=== PATIENT | male | born 1995 | race Caucasian/White ===

== ENCOUNTER 2022-01-26 01:03 | Emergency (ER) | payer SELFPAY ==
[2022-01-26 01:03] VITALS: BP 131/96; PULSE 88; RESP 19; TEMP 36.7; O2SAT 97; BMI 32.1
[2022-01-26 01:08] VITALS: BMI 32.1
--- NOTE | 2022-01-26 01:10 | CT_ITS ---
PROCEDURE INFORMATION: Exam: CT Cervical Spine Without Contrast Exam date and time: 01/26/2022 1:21 AM Age: 26 years old Clinical indication: Injury or trauma; Fall; Blunt trauma; Additional info: Fall, mid back pain TECHNIQUE: Imaging protocol: Computed tomography of the cervical spine without contrast. Radiation optimization: All CT scans at this facility use at least one of these dose optimization techniques: automated exposure control; mA and/or kV adjustment per patient size (includes targeted exams where dose is matched to clinical indication); or iterative reconstruction. COMPARISON: CR XR CHEST AP 01/26/2022 1:12 AM FINDINGS: Bones/joints: Straightening of the curvature of the cervical spine is likely positional. Discs/Spinal canal/Neural foramina: No significant disc protrusion. No severe spinal canal stenosis. No significant neural foraminal narrowing. Lungs: Lung apices are normal. Soft tissues: Unremarkable. IMPRESSION: No acute fracture or malalignment of the cervical spine.
--- NOTE | 2022-01-26 01:10 | CT_ITS ---
PROCEDURE INFORMATION: Exam: CT Head Without Contrast Exam date and time: 01/26/2022 1:21 AM Age: 26 years old Clinical indication: Injury or trauma; Fall; Blunt trauma (contusions or hematomas); Additional info: Fall, mid back pain TECHNIQUE: Imaging protocol: Computed tomography of the head without contrast. Radiation optimization: All CT scans at this facility use at least one of these dose optimization techniques: automated exposure control; mA and/or kV adjustment per patient size (includes targeted exams where dose is matched to clinical indication); or iterative reconstruction. COMPARISON: No relevant prior studies available. FINDINGS: Brain: Normal. No hemorrhage. Unremarkable white matter. No mass effect. Cerebral ventricles: No ventriculomegaly. Paranasal sinuses: Visualized sinuses are unremarkable. No fluid levels. Mastoid air cells: Visualized mastoid air cells are well aerated. Bones/joints: Unremarkable. No acute fracture. Soft tissues: Unremarkable. IMPRESSION: No acute intracranial abnormality.
--- NOTE | 2022-01-26 01:10 | CT_ITS ---
PROCEDURE INFORMATION: Exam: CT Thoracic Spine Without Contrast Exam date and time: 01/26/2022 1:24 AM Age: 26 years old Clinical indication: Injury or trauma; Fall; Blunt trauma (contusions or hematomas); Injury date: 01/26/22; Additional info: Fall, mid back pain TECHNIQUE: Imaging protocol: Computed tomography of the thoracic spine without contrast. Radiation optimization: All CT scans at this facility use at least one of these dose optimization techniques: automated exposure control; mA and/or kV adjustment per patient size (includes targeted exams where dose is matched to clinical indication); or iterative reconstruction. COMPARISON: CT CERVICAL SPINE WO CON 01/26/2022 1:21 AM FINDINGS: Bones/joints: No acute fracture. Normal alignment. Discs/Spinal canal/Neural foramina: No significant disc protrusion. No severe spinal canal stenosis. No significant neural foraminal narrowing. Soft tissues: Unremarkable. Lungs: There is an 11 mm right lower lobe pulmonary nodule. IMPRESSION: 1. No acute fracture or malalignment of the thoracic spine. 2. There is an 11 mm right lower lobe pulmonary nodule. A three-month follow-up chest CT is recommended.
--- NOTE | 2022-01-26 01:11 | XR_ITS ---
PROCEDURE INFORMATION: Exam: XR Chest Exam date and time: 01/26/2022 1:12 AM Age: 26 years old Clinical indication: Injury or trauma; Fall; Blunt trauma (contusions or hematomas) TECHNIQUE: Imaging protocol: Radiologic exam of the chest. Views: 1 view. COMPARISON: No relevant prior studies available. FINDINGS: Lungs: Unremarkable. No consolidation. Pleural spaces: Unremarkable. No pleural effusion. No pneumothorax. Heart/Mediastinum: Unremarkable. No cardiomegaly. Bones/joints: Unremarkable. IMPRESSION: No acute intrathoracic organ injury.
--- NOTE | 2022-01-26 01:11 | XR_ITS ---
PROCEDURE INFORMATION: Exam: XR Pelvis Exam date and time: 01/26/2022 1:14 AM Age: 26 years old Clinical indication: Injury or trauma; Fall; Blunt trauma (contusions or hematomas); Does not apply; Pelvic region TECHNIQUE: Imaging protocol: Radiologic exam of the pelvis. Views: 1 or 2 view. COMPARISON: No relevant prior studies available. FINDINGS: Bones/joints: No acute fracture or dislocation. Soft tissues: Unremarkable. IMPRESSION: No acute fracture or dislocation.
--- NOTE | 2022-01-26 01:18 | PC.NURSE ---
Pt gone to RAD
--- NOTE | 2022-01-26 01:31 | PC.NURSE ---
Pt back from RAD
[2022-01-26 02:00] VITALS: BP 138/87; PULSE 96; O2SAT 93
--- NOTE | 2022-01-26 02:25 | HMH.EDFALL ---
ED Disposition Clinical Impression: Acute thoracic myofascial strain Qualifiers: Encounter type: initial encounter Qualified Code(s): S29.019A - Strain of muscle and tendon of unspecified wall of thorax, initial encounter Cervical strain, acute Qualifiers: Encounter type: initial encounter Qualified Code(s): S16.1XXA - Strain of muscle, fascia and tendon at neck level, initial encounter Fall Qualifiers: Encounter type: initial encounter Qualified Code(s): W19.XXXA - Unspecified fall, initial encounter Disposition: Home, Self-Care Condition on Discharge: Good Instructions: DI for Thoracic Back Pain Additional Instructions: ice and advil and tyenol Prescriptions: Meloxicam 15 mg PO DAILY #10 tab Transmission Status: Pending to [id number] Referrals: Provider,Referral, [Primary Care Provider] - - Critical Care Critical Care Time: No Attestation: On 01/26/22, the high probability of a clinically significant, sudden or life threatening deterioration of the following system(s) required my full and direct attention, intervention and personal management. The time I documented below is in addition to time spent performing reported procedures but includes the following listed in this critical care notation. Medical Decision Making - Medical Records Medical records reviewed: Yes: I reviewed the patient's medical records. - [facility] Inquiry Pt receiving controlled substance: No Vital Signs: 01/26/22 01:03 Temperature 98.1 F Temperature Source Oral Pulse Rate [Right] 88 Respiratory Rate 19 Blood Pressure [Right Arm] 131/96 H Blood Pressure Mean [Right Arm] 107 Blood Pressure Source [Right Arm] Automatic Cuff 02 Sat by Pulse Oximetry 97 Oxygen Delivery Method Room Air - Radiology Data #1 Image(s): Chest, Pelvis Image Reviewed: Yes I have reviewed radiologist's interpretation Preliminary Findings: No Fracture Seen - CT Data CT Scan: Head, C-Spine, T-Spine Time Received: 02:[address] Reviewed: Yes: I have viewed the radiologist's interpretation Preliminary Findings: No Fracture Seen Medical Decision Narrative: pt with stable exam and neg xrays at this time - workman comp forms completed Fall HPI - General Chief Complaint: Fall Stated Complaint: Back Pain Time Seen by Provider: 01/26/22 01:10 Mode of Arrival: EMS Source of Information: Patient, EMS, Medical Record Limitations: No Limitations Description of Symptoms (Recalled from ER Triage Doc. by RN): Pt c/o fall while at work @ [employer]. Reports his feet slipped on wet floor and he does not have anti-slip shoes yet. States that he struck the middle of his back on the floor and knocked the breath out of me . He now c/o mid back pain that is tender on palpation. No radiating pain down legs or arms. No weakness in legs or arms. Denies any SOA or difficulty breathing at this time. Denies any loss of bowel o bladder. Denies any parathesia to arms or legs. Denies any significant PMH. - History of Present Illness HPI Narrative: slipped and fell at work without loc and has back pain - MD complaint: fall Onset (ago): minute(s) Fall from: standing Fall witnessed: no Place fall occurred: work Loss of consciousness: none Symptoms prior to fall: none Context: tripped/slipped Location of injury: neck, back Severity: moderate Associated symptoms (after fall): denies - Related Data Previous Rx's Medication Instructions Recorded Meloxicam 15 mg PO DAILY #10 tab 01/26/22 Allergies Allergy/AdvReac Type Severity Reaction Status Date / Time Sulfa (Sulfonamide Allergy Mild Rash Verified 01/26/22 01:10 Antibiotics) [facility] History - Hepatitis A Screen Attestation statement:: This patient has been screened for Hepatitis A risk factors. I have reviewed the patient's past medical history: Yes ROS Obtained: Yes All systems reviewed & no additional complaints - Constitutional Constitutional: Denies fever(s) - Ey
[2022-01-26 02:31] VITALS: BP 122/83; PULSE 90; O2SAT 96
--- NOTE | 2022-01-26 03:14 | PC.NURSE ---
Pt does not have his photo ID on him, Lab unable to collect d/t this reason. Pt educated to return with a photo ID to complete drug test as soon as he can. [facility]
[2022-01-26 03:31] VITALS: BP 134/82; PULSE 82; RESP 20; TEMP 36.9; O2SAT 98
== END 2022-01-26 03:32 | disposition home or self-care (01) ==
PROVIDERS: Emergency Provider Emergency Medicine
DX: S29.019A Strain of muscle and tendon of unspecified wall of thorax, initial encounter (principal); S16.1XXA Strain of muscle, fascia and tendon at neck level, initial encounter; W01.0XXA Fall on same level from slipping, tripping and stumbling without subsequent striking against object, initial encounter; Y99.0 Civilian activity done for income or pay; Z88.2 Allergy status to sulfonamides
CPT/HCPCS: 70450; 71045; 72125; 72128; 72170; 99285

== ENCOUNTER 2022-04-11 15:59 | Emergency (ER) | payer SELFPAY ==
[2022-04-11 16:35] VITALS: BP 133/101; PULSE 89; RESP 20; TEMP 37.1; O2SAT 99; BMI 32.1
--- NOTE | 2022-04-11 16:49 | EXP.UTC ---
Discharge Plan Disposition Patient Disposition: Home, Self-Care Condition: Good Prescriptions Prescriptions: New iksqmvmdnmpzoxm-tynritqvf-QY [Bromfed DM] 2-30-10 mg/5 mL Syrup 10 ml PO Q4H PRN (Reason: Cough) Qty: 240 0RF No Action meloxicam 15 MG tablet 15 mg PO DAILY Qty: 10 0RF Referrals Follow up/Referrals: Provider,Referral, MD [Primary Care Provider] - See instructions Activity Restrictions/Add. Instructions Additional Instructions/Restrictions: *Monitor Temp, Over the counter Motrin or Tylenol as directed/as needed Tylenol every 4 hours and Motrin every 6 hours (as long as your family doctor has told you that you can take it) for fever or pain. and straight to ER if unable to lower temp less than 101.0 after medication given *Warm salt water gargles may help to soothe the throat *Throat Lozenges? *Warm fluids like tea with honey may help to soothe the throat? *Sleep elevated *Humidifier/Vaporizer *Bromfed may cause drowsiness. Know how it effects you (your child) before driving, caring for small child, or sending your child to school. Not other antihistamines/allergy medications while taking bromfed Your throat swab was sent for culture. Those results are typically sent to your primary care. Be sure to follow up in 2-3 days with your family doctor/primary care physician if no improvement so they can review those result and treat if necessary. If you don?t have a primary care doctor, I recommend you get one but in the mean time, you will have to return to a walk in clinic Follow up IMMEDIATELY for new or worsening symptoms or no Noticeable improvement over the next 48-72 hours. 911 for difficulty breathing or swallowing Clinical Impressions Clinical Impression: Sore throat (viral) Stand Alone Forms Stand Alone Forms: Work/School Release Instructions Patient Instructions: Sore Throat, DI for Nasal Congestion Discharge ED Provider: Kimber Duarte [facility] HPI General Stated complaint: sore throat runny nose Mode of Arrival: Ambulatory Source of Information: Patient Limitations: No Limitations Time Seen by Provider: 04/11/22 16:50 Description of Symptoms (Recalled from Triage Doc. 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 and thinks it made him sick States that today he wasnt able to work so he came in to get checked for strep throat Related Data Previous Rx's Medication Instructions Recorded meloxicam 15 mg tablet 15 mg PO DAILY #10 tabs 01/26/22 vizaewtlejykgml-udketxganfnlisv-FX 10 ml PO Q4H PRN Cough #240 mL 04/11/22 2 mg-30 mg-10 mg/5 mL oral syrup (Bromfed DM) Allergies Allergy/AdvReac Type Severity Reaction Status Date / Time Sulfa (Sulfonamide Allergy Mild Rash Verified 01/26/22 01:10 Antibiotics) Worker's Comp Is this a Worker's Comp case?: No PFSH PFSH Medical History (Updated 04/11/22 @ 16:53 by Kimber Duarte APRN) No significant past medical history Social History (Updated 04/11/22 @ 16:48 by Misty Pinzon RN) Smoking Status: Unknown if ever smoked alcohol intake: never current occupational status: employed Travel in the last 8 weeks: None ROS Obtained: Yes All systems reviewed & no additional complaints except as documented and Yes Systems reviewed as appropriate & no additional complaints except as documented ENT Ears, Nose, Mouth, and Throat: Reports system reviewed and no additional complaints, except as documented, Reports as per HPI, Reports nasal congestion, Reports nasal
[2022-04-11 16:52] LABS: UTC Strep Screen (Rapid) Negative (Negative)
[2022-04-11 16:54] VITALS: BP 133/101; PULSE 89; RESP 20; TEMP 37.1; O2SAT 99
== END 2022-04-11 17:01 | disposition home or self-care (01) ==
PROVIDERS: Emergency Provider Nurse Practitioner
DX: J02.9 Acute pharyngitis, unspecified (principal); R09.81 Nasal congestion
CPT/HCPCS: 87880; 99212; G0463

== ENCOUNTER 2022-10-28 21:27 | Emergency (ER) | payer MEDICAID, SELFPAY ==
[2022-10-28 21:28] VITALS: BP 129/73; PULSE 97; RESP 17; TEMP 37.1; O2SAT 97; BMI 37.5
--- NOTE | 2022-10-29 01:09 | PC.NURSE ---
ER speaking with pt
--- NOTE | 2022-10-29 01:24 | HMH.EDWNDL ---
Discharge Plan Disposition Patient Disposition: Home, Self-Care Chief Complaint: Wound/Laceration Prescriptions Prescriptions: No Action meloxicam 15 MG tablet 15 mg PO DAILY Qty: 10 0RF axrlbrpgyeabfrj-njebfkyfh-DG [Bromfed DM] 2-30-10 mg/5 mL Syrup 10 ml PO Q4H PRN (Reason: Cough) Qty: 240 0RF Referrals Follow up/Referrals: Provider,Referral, [Primary Care Provider] - See instructions Clinical Impressions Clinical Impression: Anal lesion Instructions Patient Instructions: MEL James for Laceration Repair Discharge ED Provider: Cecil (ED)Deni Wound/Laceration HPI General Chief Complaint: Wound/Laceration Stated Complaint: possible hemorrhoid with blood Time Seen by Provider: 10/29/22 01:24 Mode of Arrival: Ambulatory Source of Information: Patient and Medical Record Limitations: No Limitations Description of Symptoms (Recalled from ER Triage Doc. by RN): 27 M presents with a possible hemorroid for the past few years. This bleeds intermittently after a BM. He denies bleeding at this time; however, is still concerned. History of Present Illness HPI narrative: pt with hx of rectal lesion and presents for follow up - has been present for weeks - no gross bleeding or pain - does reports rectal intercourse Onset (ago): week(s) Place: home Related Data Previous Rx's Medication Instructions Recorded meloxicam 15 mg tablet 15 mg PO DAILY #10 tabs 01/26/22 bnwjnlqfabhkvos-mberohnyejllyfh-WC 10 ml PO Q4H PRN Cough #240 mL 04/11/22 2 mg-30 mg-10 mg/5 mL oral syrup (Bromfed DM) Allergies Allergy/AdvReac Type Severity Reaction Status Date / Time Sulfa (Sulfonamide Allergy Mild Rash Verified 01/26/22 01:10 Antibiotics) [facility] Disclaimer: The information contained in this section may have been updated after the patient was seen, as this information can be updated by other users. Medical History (Updated 10/29/22 @ 01:30 by Deni Jacob (ED)MD) No significant past medical history Social History (Updated 04/11/22 @ 16:53 by Kimber Duarte APRN) Smoking Status: Never smoker alcohol intake: never current occupational status: employed Travel in the last 8 weeks: None ROS Obtained: Yes All systems reviewed & no additional complaints except as documented Physical Exam General General appearance: alert Head Head exam: normocephalic Eye Eye exam: Present PERRL ENT ENT exam: Present mucous membranes moist Neck Neck exam: Present trachea midline Respiratory Respiratory exam: Absent respiratory distress Cardiovascular Cardiovascular exam: Present regular rate Rectal Exam Rectal exam: Present other (skin tag vs wart - no gross infection ); Absent hemorrhoids Extremities Exam Extremities exam: Present full ROM Neurological Exam Neurological exam: Present alert, oriented X3 and CN II-XII intact Psychiatric Psychiatric exam: Present normal affect Skin Skin exam: Absent rash Medical Decision Making Medical Records Medical records reviewed: Yes I reviewed the patient's medical records. [facility] Inquiry Pt receiving controlled substance: No Vital Signs: 10/28/22 21:28 Temperature 98.7 F Temperature Source Oral Pulse Rate [Left] 97 H Respiratory Rate 17 Blood Pressure [Right Arm] 129/73 Blood Pressure Mean [Right Arm] 91 Blood Pressure Source [Right Arm] Automatic Cuff Blood Pressure Position [Right Arm] Sitting 02 Sat by Pulse Oximetry 97 Oxygen Delivery Method Room Air Lab Data Lab results reviewed: Yes I reviewed the patient's lab results. Medical Decision Narrative: rectal lesion which will need surg eval Critical Care Time Critical Care Time Critical Care Time: No Attestation: On 10/28/22, the high probability of a clinically significant, sudden or life threatening deterioration of the following system(s) required my full and direct attention, intervention and personal management. The time I documented below is in additio
[2022-10-29 01:30] VITALS: BP 155/94; PULSE 77; RESP 14; TEMP 36.8; O2SAT 97
== END 2022-10-29 01:33 | disposition home or self-care (01) ==
PROVIDERS: Emergency Provider Emergency Medicine
DX: K62.9 Disease of anus and rectum, unspecified (principal)
CPT/HCPCS: 99282; 99283

== ENCOUNTER 2022-11-23 07:54 | Day surgery (SDC) | payer MEDICAID, SELFPAY ==
[2022-11-21 12:52] VITALS: BMI 32.1
[2022-11-23] VITALS (10 sets, daily range): BP systolic 118–158; BP diastolic 70–98; PULSE 75–101; RESP 16–18; TEMP 36.2–43; O2SAT 91–98
[2022-11-23 08:31] LABS: Basophils # 0.1 K/mm3 (0-0.2); Basophils % 0.9 % (0.1-2.0); Eosinophils # 0.2 K/mm3 (0.0-0.4); Eosinophils % 2.3 % (0.1-12.0); Hematocrit 49.4 % (42.0-52.0); Hemoglobin 16.7 g/dL (14.1-18.0); Lymphocytes # 4.9 K/mm3 (0.7-4.5); Mean Corpuscular HGB Conc 33.8 g/dL (31.8-35.4); Mean Corpuscular Hemoglobin 28.4 pg (27.0-31.2); Mean Corpuscular Volume 84.1 fl (80-94); Mean Platelet Volume 7.2 fl (7.4-10.4); Monocytes # 0.8 K/mm3 (0.1-1.0); Neutrophils # 4.4 K/mm3 (1.8-7.8); Neutrophils % 41.9 % (37.0-80.0); Platelet Count 335 K/mm3 (142-424); Red Blood Count 5.88 M/mm3 (4.60-6.20); Red Cell Distribution Width 13.4 % (11.5-17.5); White Blood Count 10.4 K/mm3 (4.8-10.8)
--- NOTE | 2022-11-23 08:31 | SUR.PREOP ---
General discharge teaching with patient and mother, reviewing severe pain or bleeding to return to ER. Follow up will be made before discharge, Pharmacy verified, mother to be with patient after discharge. Reviewed post-op recovery protocols, pt verbalized understanding.
[2022-11-23 08:35] LABS: Chloride 104 mmol/L (98-107); Potassium 3.8 mmoL/L (3.5-5.1); Sodium 139 mmol/L (136-145)
[2022-11-23 08:38] LABS: Anion Gap 12.8 mEq/L (5-15); Blood Urea Nitrogen 14 mg/dl (9-20); Calcium 9.3 mg/dl (8.4-10.2); Carbon Dioxide 26 mmol/L (22.0-30.0); Creatinine Clearance Estimated 182 mL/min (50-200); Estimated Glomerular Filt Rate 116 ml/min (>60); GFR (African American) 140 ML/MIN (>60); Glucose 110 mg/dl (74-100)
--- NOTE | 2022-11-23 09:45 | EXP.ANES.CKL ---
[facility] Disclaimer: The information contained in this section may have been updated after the patient was seen, as this information can be updated by other users. Medical History No significant past medical history Surgical History Hx of appendectomy Family History Other Family history of cancer Family history of diabetes mellitus Social History Smoking Status: Never smoker alcohol intake: never substance use type: denies use current occupational status: employed and unemployed Travel in the last 8 weeks: None [facility] Anesthesia Checklist Patient Identification Patient Identification: Arm Band Structural Data Admitted From: Home Planned Operative Procedure/s: Exam Under Anesthesia Consent for Planned Operative Procedure(s) Verified: Yes Verified Documents: Surgical Consent and History and Physical NPO Status Verified Time NPO: 00:00 Additional verifications Anesthesia Reactions: No Hx Blood Transfusions: No Airway Assessment C-Spine Mobility Assessed: Yes TMJ Mobility Assessed: Yes Dentition: Good Dentition Neurological Assessment Level of Consciousness: Awake and Alert Anesthesia Plan Anesthesia Risk discussed: Yes Anesthesia Plan: Verified ASA Class: I Anesthesia Type: General
--- NOTE | 2022-11-23 10:10 | EXP.OP.NOTE ---
Date of procedure: 11/23/22 Pre-op Diagnosis:: Perianal condyloma Post-op Diagnosis:: Same Procedure performed:: Examination under anesthesia with excision of perianal condyloma Surgeon:: Owen Jiménez MD [employer] HOLER:: Behzad Hardy Anesthesia: LMA Estimated blood loss (mL): 5 Operative findings:: Pedunculated right lateral margin condyloma Small satellite condyloma (x5) scattered circumferentially Operative note:: After informed consent was obtained the patient was taken to the operating room and placed in the supine position. General anesthesia with laryngeal mask airway was achieved. He was transferred to modified lithotomy position and his perianal region was prepped and draped in a sterile fashion. After infiltration local anesthetic digital rectal exam and visual inspection revealed a pedunculated right lateral margin condyloma with 5 small circumferential satellite lesions. No obvious lesions were noted within the anal canal. The small satellite lesions were carefully elevated and excised with electrocautery (the smallest 2 lesions were essentially fulgurated). The larger pedunculated right lateral lesion was then excised with electrocautery and passed off for pathologic evaluation. Electrocautery was utilized to achieve hemostasis. The patient was then transferred to recovery in stable condition after removal of his laryngeal mask airway. Condition: stable Disposition: PACU Specimens:: Perianal condyloma Complications:: No immediate
--- NOTE | 2022-11-23 10:13 | EXP.ANES.I ---
[facility] Anesthesia Record Part I Anesthesia Record I Intake, IV Amount: 900 Estimated blood loss (mL): 5 Urine output (mL): 0 Blood Products used (#): none Blood Pressure: 118/70 SaO2: 91 Pulse Rate: 79 Respiratory Rate: 16 Temperature: 97.1 F Patient is:: Drowsy and Stable Stable to PACU at:: 10:10
--- NOTE | 2022-11-24 10:58 | P.PNANES_ITS ---
[facility] Anesthesia Record Part II Anesthesia Record Part II Discharge Time: 10:40 Destination: Surgical Day Care (OP Surgery) PACU nurse assessment reviewed?: Yes Patient Condition:: Good Anesthesia Complications:: None Swallowing reflex intact?: Yes Cyanosis?: No Blood Pressure: 141/95 Pulse Rate: 85 Temperature: 97.1 F Mental Status: Alert & Oriented Pain level:: 0 Nausea and/or vomitting:: None Intake, IV Amount: 0
[2022-11-24 10:59] VITALS: BP 141/95; PULSE 85; TEMP 36.2
== END 2022-11-23 11:03 | disposition home or self-care (01) ==
PROVIDERS: Visit Provider Surgery
PROC: (CPT 46922; principal; 2022-11-23 10:00)
DX: A63.0 Anogenital (venereal) warts (principal)
CPT/HCPCS: 46922; 80048; 85025; 96374; J2405

== ENCOUNTER 2023-06-02 01:57 | Emergency (ER) | payer MEDICAID, SELFPAY ==
[2023-06-02 01:57] VITALS: BP 167/104; PULSE 115; RESP 18; TEMP 37; O2SAT 97; BMI 32.1
--- NOTE | 2023-06-02 02:01 | CT_ITS ---
PROCEDURE INFORMATION: Exam: CTA Neck With Contrast Exam date and time: 06/02/2023 2:30 AM Age: 27 years old Clinical indication: Pain; Other: Neck; Additional info: Strangulation/right neck trauma TECHNIQUE: Imaging protocol: Computed tomographic angiography of the neck with contrast. Exam focused on the cervical segments of the vasculature. 3D rendering (Not supervised by radiologist): MIP and/or 3D reconstructed images were created by the technologist. Radiation optimization: All CT scans at this facility use at least one of these dose optimization techniques: automated exposure control; mA and/or kV adjustment per patient size (includes targeted exams where dose is matched to clinical indication); or iterative reconstruction. Contrast material: ISOVUE; Contrast volume: 100 ml; Contrast route: INTRAVENOUS (IV); REPORTING DATA: Count of CT and Cardiac NM exams in prior 12 months: This patient has received 0 known CTs and 0 known cardiac nuclear medicine studies in the 12 months prior to the current study. COMPARISON: CT CERVICAL SPINE WO CON 01/26/2022 1:21 AM FINDINGS: Right common carotid artery: No stenosis. No dissection or occlusion. Right internal carotid artery: No stenosis of the extracranial segment. No dissection or occlusion. Right external carotid artery: No occlusion or stenosis of the origin. Left common carotid artery: No stenosis. No dissection or occlusion. Left internal carotid artery: No stenosis of the extracranial segment. No dissection or occlusion. Left external carotid artery: No occlusion or stenosis of the origin. Right vertebral artery: No stenosis. No dissection or occlusion. Left vertebral artery: No stenosis. No dissection or occlusion. Soft tissues: Normal. No significant soft tissue swelling. Bones/joints: No acute fracture. IMPRESSION: No evidence of vascular injury, dissection, stenosis or occlusion. REFERENCES: NASCET CRITERIA. The degree of stenosis in the cervical segment of the internal carotid artery is based on NASCET criteria. Normal is no stenosis. Mild is less than 50% stenosis. Moderate is 50-69% stenosis. Severe is 70% to 99% stenosis. Total occlusion is no detectable patent lumen.
[2023-06-02 02:02] VITALS: PULSE 101; O2SAT 95
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
[2023-06-02 02:10] LABS: Basophils # 0.1 K/mm3 (0-0.2); Eosinophils # 0.2 K/mm3 (0.0-0.4); Eosinophils % 1.6 % (0.1-12.0); Hematocrit 49.3 % (42.0-52.0); Hemoglobin 17.2 g/dL (14.1-18.0); Lymphocytes # 4.9 K/mm3 (0.7-4.5); Lymphocytes % 42.8 % (10-50); Mean Corpuscular HGB Conc 34.9 g/dL (31.8-35.4); Mean Corpuscular Hemoglobin 29.3 pg (27.0-31.2); Mean Platelet Volume 7.1 fl (7.4-10.4); Monocytes # 0.7 K/mm3 (0.1-1.0); Monocytes % 5.9 % (1.7-9.3); Neutrophils # 5.6 K/mm3 (1.8-7.8); Neutrophils % 48.7 % (37.0-80.0); Platelet Count 332 K/mm3 (142-424); Red Blood Count 5.87 M/mm3 (4.60-6.20); Red Cell Distribution Width 13.2 % (11.5-17.5); White Blood Count 11.4 K/mm3 (4.8-10.8)
[2023-06-02 02:15] VITALS: PULSE 104; O2SAT 93
[2023-06-02 02:18] LABS: Chloride 103 mmol/L (98-107); Potassium 3.5 mmoL/L (3.5-5.1); Sodium 139 mmol/L (136-145)
[2023-06-02 02:21] LABS: Alanine Aminotransferase 31 U/L (12-78); Albumin Level 4.7 g/dl (3.5-5.0); Albumin/Globulin Ratio 1.5 (1.1-1.8); Alkaline Phosphatase 73 U/L (38-126); Anion Gap 12.5 mEq/L (5-15); Aspartate Amino Transferase 36 U/L (17-59); Bilirubin,Total 0.2 mg/dl (0.2-1.3); Blood Urea Nitrogen 12 mg/dl (9-20); Carbon Dioxide 27 mmol/L (22.0-30.0); Creatinine Clearance Estimated 182 mL/min (50-200); Estimated Glomerular Filt Rate 116 ml/min (>60); GFR (African American) 140 ML/MIN (>60); Globulin 3.2 g/dL (1.3-3.2); Total Protein,Serum 7.9 g/dl (6.3-8.2)
[2023-06-02 02:22] LABS: Calcium 9.3 mg/dl (8.4-10.2); Glucose 118 mg/dl (74-100)
[2023-06-02 02:33] VITALS: PULSE 102; O2SAT 95
[2023-06-02 02:45] VITALS: PULSE 96; O2SAT 94
[2023-06-02 03:05] VITALS: BP 127/91; PULSE 94; RESP 18; TEMP 36.8; O2SAT 97
== END 2023-06-02 03:09 | disposition home or self-care (01) ==
PROVIDERS: Emergency Provider Emergency Medicine
DX: M54.2 Cervicalgia (principal); Y04.8XXA Assault by other bodily force, initial encounter
CPT/HCPCS: 70498; 80053; 85025; 96374; 99284; J2405; Q9967